=== PATIENT | female | born 1975 | race Caucasian/White ===

== ENCOUNTER 2017-06-29 22:32 | Emergency (ER) | payer OTHER ==
[~2017-06-29] VITALS: Ht 175.3 cm; Wt 127.3 kg
[~2017-06-29 22:32] MED LIST: AMLO5TAB4 PO; BENA20TA3 PO
[2017-06-30] MEDS ORDERED: KETOROLAC 60MG/2ML VIAL IM ONE (00:15)
[2017-06-30 01:45] VITALS: BP 186/68
== END 2017-06-30 01:46 | disposition home or self-care (01) ==
LOC: ER 22:32
DX: J02.8 Acute pharyngitis due to other specified organisms (principal); B97.89 Other viral agents as the cause of diseases classified elsewhere; H00.026 Hordeolum internum left eye, unspecified eyelid; H00.023 Hordeolum internum right eye, unspecified eyelid; I10 Essential (primary) hypertension
CPT/HCPCS: 87070; 87430; 87804; 96372; 99284; J1885

== ENCOUNTER 2017-08-07 18:33 | Emergency (ER) | payer OTHER ==
[~2017-08-07] VITALS: Ht 175.3 cm; Wt 127.0 kg
[2017-08-07 18:41] VITALS: BP 184/101
[2017-08-07] MEDS ORDERED: ONDANSETRON HCL 4MG/2ML VIAL IV ONE (20:45)
== END 2017-08-07 18:56 | disposition left against medical advice (07) ==
LOC: ER 18:33
DX: R10.84 Generalized abdominal pain (principal); I10 Essential (primary) hypertension
CPT/HCPCS: 99281

== ENCOUNTER 2018-03-20 18:02 | Emergency (ER) | payer OTHER ==
[~2018-03-20] VITALS: Ht 175.3 cm; Wt 127.0 kg
[~2018-03-20 18:02] MED LIST changes: +BENA20TA10 PO; -BENA20TA3 PO
[2018-03-20 20:28] LABS: CLARITY URINE CLOUDY (CLEAR); COLOR URINE YELLOW (YELLOW); KETONES URINE TRACE (NEGATIVE); LEUKOCYTE ESTERASE URINE 2+ (NEGATIVE); NITRITE URINE NEGATIVE (NEGATIVE); OCCULT BLOOD URINE TRACE (NEGATIVE); PH URINE 6.5 (4.5-8.0); PROTEIN URINE NEGATIVE (NEGATIVE); SPECIFIC GRAVITY URINE 1.024 (1.005-1.030); UROBILINOGEN URINE 0.2 E.U./dL (0.2-1.0)
[2018-03-21] MEDS ORDERED: LEVOFLOXACIN 500MG TABLET PO ONE (00:45)
[2018-03-21] MEDS ORDERED: PHENAZOPYRIDINE HCL 100MG TABLET PO ONE (00:45)
[2018-03-21] MEDS ORDERED: KETOROLAC 60MG/2ML VIAL IM ONE (01:30)
[2018-03-21 01:51] VITALS: BP 162/87
== END 2018-03-21 02:07 | disposition home or self-care (01) ==
LOC: ER 18:26
DX: R53.1 Weakness (principal); N39.0 Urinary tract infection, site not specified; I10 Essential (primary) hypertension
CPT/HCPCS: 81003; 81025; 82962; 96372; 99283; J1885

== ENCOUNTER 2018-04-22 16:23 | Emergency (ER) | payer OTHER ==
[~2018-04-22] VITALS: Ht 175.3 cm; Wt 130.0 kg
[2018-04-22 17:05] VITALS: BP 155/69
[2018-04-22] MEDS ORDERED: BENA5TAB6 MT (17:05)
== END 2018-04-22 21:00 | disposition left against medical advice (07) ==
LOC: ER 16:23
DX: Z53.21 Procedure and treatment not carried out due to patient leaving prior to being seen by health care provider (principal)

== ENCOUNTER 2020-04-10 02:24 | Emergency (ER) | payer OTHER ==
[~2020-04-10] VITALS: Ht 175.3 cm; Wt 145.0 kg
[~2020-04-10 02:24] MED LIST changes: -BENA20TA10 PO; +BENA5TAB6 MT
[2020-04-10 03:07] VITALS: BP 206/81
== END 2020-04-10 03:39 | disposition left against medical advice (07) ==
LOC: ER 02:24
DX: R06.02 Shortness of breath (principal); Z53.21 Procedure and treatment not carried out due to patient leaving prior to being seen by health care provider

== ENCOUNTER 2021-03-17 14:33 | Emergency (ER) | payer OTHER ==
[~2021-03-17] VITALS: Ht 165.1 cm; Wt 98.0 kg
[2021-03-17] MEDS ORDERED: METOPROLOL (14:46)
[2021-03-17] MEDS ORDERED: LISINOPRIL (14:46)
[2021-03-17] MEDS ORDERED: MAGNESIUM/ALUMINUM HYDROXIDE/SIMETHICONE 30ML UDC PO ONE (16:00)
[2021-03-17] MEDS ORDERED: VISCOUS LIDOCAINE 2% 15 ML UDC PO ONE (16:00)
[2021-03-17] MEDS ORDERED: SODIUM CHLORIDE 0.9% 1,000 ML IV ONE (16:00)
[2021-03-17 16:13] LABS: HEMATOCRIT. 35.1 % (36.0-48.0); HEMOGLOBIN. 11.1 g/dL (12.0-16.0); MEAN CORPUSCULAR VOLUME 69.6 fL (81.0-99.0); MEAN PLATELET VOLUME 7.4 fl (7.4-10.4); PLATELET 392 x1000/uL (130-400); RED BLOOD CELL COUNT 5.04 mill/uL (4.2-5.4); RED CELL DISTRIBUTION WIDTH 19.4 % (11.6-14.6)
[2021-03-17 16:24] LABS: CHLORIDE 103 mEq/L (98-107)
[2021-03-17 16:30] VITALS: BP 182/95
[2021-03-17 16:36] LABS: B-HCG QUANTITATIVE < 1 mIU/mL (<3)
[2021-03-17 16:47] LABS: PLATELET ESTIMATE NORMAL
== END 2021-03-17 17:54 | disposition left against medical advice (07) ==
LOC: ER 14:47
DX: R10.9 Unspecified abdominal pain (principal); R30.0 Dysuria; N93.9 Abnormal uterine and vaginal bleeding, unspecified; R53.83 Other fatigue; I10 Essential (primary) hypertension; I48.91 Unspecified atrial fibrillation
CPT/HCPCS: 36415; 76830; 76856; 80053; 83690; 84702; 85025; 86850; 86900; 86901; 93005; 96360; 99285; J7030

== ENCOUNTER 2021-11-19 23:03 | Emergency (ER) | payer MEDICAID, OTHER ==
[~2021-11-19] VITALS: Ht 175.3 cm; Wt 138.0 kg
[~2021-11-19 23:03] MED LIST changes: +BENA5TAB40 MT; -BENA5TAB6 MT; +LISINOPRIL; +METOPROLOL
[2021-11-19 23:10] VITALS: BP 169/81
== END 2021-11-20 03:49 | disposition left against medical advice (07) ==
LOC: ER 23:03
DX: Z53.21 Procedure and treatment not carried out due to patient leaving prior to being seen by health care provider (principal)